=== PATIENT | male | born 1995 | race Caucasian/White ===

== ENCOUNTER 2016-10-17 10:42 | Emergency (ER) | payer SELFPAY ==
[2016-10-17 11:24] VITALS: BP 135/95
--- NOTE | 2016-10-17 13:14 | XRay Report ---
RIGHT FOOT, 3 views: History: Right foot injury The bony architecture is intact. Bony alignment is normal. No soft tissue abnormalities are seen. The joint spaces appear preserved. IMPRESSION: Normal right foot.
--- NOTE | 2016-10-17 13:14 | XRay Report ---
RIGHT TIBIA/FIBULA: History: Right leg injury AP and lateral views of the right tibia/fibula demonstrate normal mineralization and contours for this patient's age. No destructive changes are noted and the adjacent soft tissues are normal. IMPRESSION: Unremarkable right tibia/fibula.
[2016-10-17] MEDS ORDERED: BOOSTRIX IM ONE (13:25)
[2016-10-17] MEDS ORDERED: NORCO 5/325 PO ONE (13:25)
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
== END 2016-10-17 14:33 | disposition home or self-care (01) ==
LOC: ED 10:42
DX: S96.811A Strain of other specified muscles and tendons at ankle and foot level, right foot, initial encounter (principal); F17.200 Nicotine dependence, unspecified, uncomplicated; X50.1XXA Overexertion from prolonged static or awkward postures, initial encounter; Y93.89 Activity, other specified; Y99.8 Other external cause status; Y92.89 Other specified places as the place of occurrence of the external cause
CPT/HCPCS: 90471; 90715